=== PATIENT | female | born 1975 | race African-American/Black ===

== ENCOUNTER 2024-04-25 17:54 | Emergency (ER) | payer MEDICAID ==
[~2024-04-25] VITALS: Ht 162.6 cm; Wt 85.0 kg
[2024-04-25 17:57] VITALS: O2SAT 100
[2024-04-25] MEDS ORDERED: DIPHENHYDRAMINE 50MG CAPSULE PO ONE ×2 (18:30→18:45)
[2024-04-25] MEDS ORDERED: P20 PO (18:31)
[2024-04-25] MEDS ORDERED: FAMOTIDINE 20MG TABLET PO STA (18:31)
[2024-04-25] MEDS ORDERED: PREDNISONE 20MG TABLET PO ONE (18:45)
[2024-04-25 19:09] VITALS: BP 133/82; PULSE 79; RESP 18; TEMP 98.5
[2024-04-25] MEDS: DIPHENHYDRAMINE 25MG CAPSULE PO NR (19:10)
[2024-04-25] MEDS: FAMOTIDINE 20MG TABLET PO SCH (19:10)
[2024-04-25] MEDS: PREDNISONE 20MG TABLET PO ONE (19:10)
== END 2024-04-25 19:11 | disposition home or self-care (01) ==
LOC: ER 17:54
DX: L20.9 Atopic dermatitis, unspecified (principal); L71.9 Rosacea, unspecified; Z98.51 Tubal ligation status
CPT/HCPCS: 99284; Q0163; J7512